=== PATIENT | female | born 1970 | race African-American/Black ===

== ENCOUNTER 2017-08-30 11:44 | Day surgery (SDC) | payer OTHER ==
--- NOTE | 2017-08-29 10:39 | HP ---
AMENDED REPORT NOW INCLUDES COSIGNER DESIGNATION - ESIGNED BEFORE ADJUSTMENTS PREOPERATIVE HISTORY AND PHYSICAL: DATE OF ADMISSION/SURGERY: 08/30/17 DATE OF OFFICE VISIT/ENCOUNTER: 08/28/17 ATTENDING SURGEON: Veronica Talavera MD * (DICTATED BY ZAIN RANDOLPH) PROCEDURE: Removal of foreign body, left hand. CHIEF COMPLAINT: Foreign body, left hand. HISTORY OF PRESENT ILLNESS: This is a 46-year-old female, who reports obtaining a foreign body in her hand approximately 3 weeks ago. She said she was holding a wooden tray and the tray slipped a bit and a splinter entered her hand on the radial aspect of her hand, right at the base of the index finger. She said, initially, she tried to pull the splinter out and she got part of it, but she was fairly certain that part of it remained. It is painful with any sort of pressure applied to the area and she would like to have the rest of the splinter removed. She rates her pain as 3/10. She has consented to proceed with removal of foreign body, left hand. PAST MEDICAL HISTORY: Hypercholesterolemia. PAST SURGICAL HISTORY: Surgery on breast for discharge. MEDICATIONS: 1. Simvastatin 5 mg daily. 2. Vitamin D daily. ALLERGIES: No known drug allergies. FAMILY MEDICAL HISTORY: Significant for diabetes and rheumatoid arthritis. SOCIAL HISTORY: The patient is a homemaker. She lives with her spouse. She denies tobacco use, recreational drug use, and alcohol use. REVIEW OF SYSTEMS: General: Negative for fevers, chills, or night sweats. No known anesthesia problems. HEENT: Negative for headache, lightheadedness, or syncopal episodes. Integumentary: Negative for abrasions, lesions, or open wounds. Cardiothoracic: Negative for hypertension, chest pain, palpitations, and edema. Pulmonary: Negative for shortness of breath with exertion, chronic cough, COPD. GI: Negative for nausea, vomiting, diarrhea, constipation, or GERD. : Negative for nocturia, urinary frequency, urgency, history of UTIs, or kidney problems. Musculoskeletal: Positive for current complaint, otherwise negative. Neurologic: Negative for paraesthesias, numbness, history of seizure, stroke, or epilepsy. Endocrine: Negative for diabetes or thyroid issues. Hematologic: Negative for easy bruising, anemia, excessive bleeding, or history of DVT. Infectious Disease: Negative for history of MRSA, hepatitis C, or HIV. PHYSICAL EXAMINATION VITAL SIGNS: Height 5 feet 7 inches, weight 159 pounds, blood pressure 110/72. HEENT: Normocephalic, atraumatic. Pupils were equal, round, and reactive to light and accommodation. Extraocular movements are intact. Throat is clear. NECK: Supple. No palpable lymph nodes. PULMONARY: Lungs are clear to auscultation bilaterally. No wheezes, rales, or rhonchi. CARDIOVASCULAR: Regular rate and rhythm. S1, S2. No murmurs, rubs, or gallops. No edema. ABDOMEN: Positive bowel sounds, soft, nontender. NEUROLOGIC: Alert and oriented x3. Cranial nerves II through XII are intact. Sensation is intact to light touch. Peripheral vascular: 2+ radial and ulnar pulses. Negative Delgado's test. MUSCULOSKELETAL: On exam of her left hand, she has a healed wound on her left hand on the radial aspect at the base of the index finger. There is no drainage. No erythema. It is tender to palpation and the foreign body is palpable under the skin. Neurovascular function is intact. IMAGING STUDIES: AP, lateral, and oblique of the left hand are unremarkable, foreign body is not visualized on x-rays. IMPRESSION: Foreign body, left hand. PLAN: The patient is scheduled to undergo foreign body removal, left hand, with Dr. Talavera, on 08/30/17. She will return to the office 10 to 14 days postop for followup and suture removal. She has ibuprofen 800 mg at home and she will plan on using this for postoperative pain management. ZAIN RANDOLPH [id number]/[facility] #: [id number] [facility]ITAL[facility]
[~2017-08-30 11:44] MED LIST: Buffered Lidocaine 0.9% SYRIN* 5 ML/SYR SYRINGE INTRADERM ONE
[2017-08-30] MEDS ORDERED: Lidocaine 1% INJ* 10 MG/ML 30 ML SDV ONE (12:52)
[2017-08-30] MEDS ORDERED: Midazolam* 1 MG/ML 2 ML VIAL (2 MG) ONE (13:01)
[2017-08-30] MEDS ORDERED: fentaNYL* 50 MCG/ML 2 ML VIAL (100 MCG VIAL) ONE (13:01)
[2017-08-30 13:38] VITALS: BP 117/75
--- NOTE | 2017-08-31 06:42 | OP ---
DATE OF OPERATION: 08/30/17 [facility] DATE OF : 68 SURGEON: Veronica Talavera MD STAFF COUNSELOR: ZAIN Larson ANESTHESIA: Local MAC. PRE-OP DIAGNOSIS: Left hand foreign body. POST-OP DIAGNOSIS: Left hand foreign body. OPERATIVE PROCEDURE: Removal foreign body, left hand. INDICATIONS: Shamika is a 46-year-old female, who complains of a painful foreign body in the left hand. She was carrying a wooden tray and got a sliver in her hand, she was unable to retrieve it all and the wound has sealed over. She presents for removal of foreign body, left hand. ESTIMATED BLOOD LOSS: Zero. TOURNIQUET TIME: 5 minutes. DESCRIPTION OF PROCEDURE: The patient was brought to the operating room, given a sedation anesthetic and a local infiltration of 10 cc of 1% plain lidocaine in the palm of the left hand. The skin of her left hand and forearm was prepped and draped in the usual sterile fashion. The hand and forearm were exsanguinated and tourniquet elevated to 250 mmHg. The puncture wound was incised and then carefully dissected through the subcutaneous tissue. There was a small piece of wood and this was removed. The wound was copiously irrigated with saline and the skin edges reapproximated with 4-0 nylon suture. The wound was dressed with Xeroform, 4x4, Webril, and an Marko wrap. The patient tolerated the procedure well, was brought to the recovery room in good condition. [id number]/[facility] #: [id number] MTDD
== END 2017-08-30 13:48 | disposition home or self-care (01) ==
LOC: OREAST 11:44
PROVIDERS: ATTEND Orthopaedic Surgery
DX: S60.552A Superficial foreign body of left hand, initial encounter (principal); W45.8XXA Other foreign body or object entering through skin, initial encounter; Y93.89 Activity, other specified; Y92.89 Other specified places as the place of occurrence of the external cause
CPT/HCPCS: 81025; J2250; J3010